=== PATIENT | female | born 1940 | race Caucasian/White ===

== ENCOUNTER → 2021-08-13 | Outpatient (CLI) | payer MEDICARE ==
--- NOTE | 2021-08-13 11:24 | XR ---
EXAMINATION TYPE: XR lumbosacral spine min 4V DATE OF EXAM: 08/13/2021 CLINICAL HISTORY: Pain from fall injury 2 weeks ago. TECHNIQUE: Frontal, lateral, and oblique images of the lumbar spine are obtained. COMPARISON: None FINDINGS: There are 5 lumbar type vertebral bodies identified. The lumbar spine shows grade 1 anter olisthesis L4 on L5. No acute displaced fracture is seen. Vertebral body heights and disc space heigh ts are maintained. [id number] multilevel anterior and lateral spurring. Oblique images appear w ithin normal limits. Possible bilateral renal calculi including 8 mm calculus projecting over the rig ht kidney. Correlate clinically. IMPRESSION: As above
--- NOTE | 2021-08-13 11:38 | XR ---
EXAMINATION TYPE: XR Hip Complete LT DATE OF EXAM: 08/13/2021 CLINICAL HISTORY: Pain from fall injury. TECHNIQUE: AP and frogleg views of the left hip are obtained. COMPARISON: None. FINDINGS: There is no acute fracture/dislocation evident in the left hip. Joint space is maintained. Mild to moderate superior lateral acetabular spurring is present. Mild left groin arterial vascular calcification. Occasional scattered left-sided pelvic phlebolith is noted. IMPRESSION: As above.
== END | disposition home or self-care (01) ==
LOC: RADXRMAIN 10:40
PROVIDERS: ATTEND Internal Medicine
DX: M43.16 Spondylolisthesis, lumbar region (principal); M25.78 Osteophyte, vertebrae; M25.752 Osteophyte, left hip; I87.8 Other specified disorders of veins
CPT/HCPCS: 72110; 73502

== ENCOUNTER 2022-03-03 05:48 | Day surgery (SDC) | payer MEDICARE ==
[2022-03-02 10:10] VITALS: BMI 45.7
[2022-03-03] MEDS ORDERED: ALPRAZolam 0.25 MG TAB PO PRN (05:54)
[2022-03-03] MEDS ORDERED: ATORVASTATIN 80 MG TAB PO STA (05:54)
[2022-03-03] MEDS ORDERED: SODIUM CHLORIDE 0.9% 1,000 ML in EMPTY BAG 1 BAG IV SCH (05:54)
[2022-03-03] MEDS ORDERED: ALPRAZolam 0.5 MG TAB PO PRN (05:54)
[2022-03-03] MEDS ORDERED: NITROGLYCERIN SL TABS 0.4 MG TAB SUBLINGUAL PRN (05:54)
[2022-03-03] MEDS ORDERED: ASPIRIN 325 MG TAB PO STA (05:54)
[2022-03-03] MEDS ORDERED: SODIUM CHLORIDE 0.9% 1,000 ML IV ONE (06:09)
[2022-03-03] MEDS ORDERED: METOPROLOL SUCCINATE (ER) 25 MG TAB.ER.24H PO STA (06:26)
[2022-03-03] MEDS ORDERED: VERAPAMIL SR 240 MG TABLET.ER PO STA (06:26)
[2022-03-03 06:37] LABS: Glucose,Whole Blood 146 mg/dL (70-110)
[2022-03-03 06:40] VITALS: RESP 16; TEMP 98.7
[2022-03-03] MEDS ORDERED: HEPARIN SODIUM,PORCINE 10,000 UNIT in SODIUM CHLORIDE 0.9% 1,000 ML IRRIGATION PRN (07:00)
[2022-03-03] MEDS ORDERED: HEPARIN SODIUM,PORCINE 2,500 UNIT in SODIUM CHLORIDE 0.9% 250 ML IRRIGATION PRN (07:00)
[2022-03-03] MEDS ORDERED: fentaNYL (PF) 50 MCG/ML 2 ML AMP IV ONE (07:33)
[2022-03-03] MEDS ORDERED: LIDOCAINE 1% INJ 10MG/ML (30 ML VIAL-PF) SQ ONE (07:35)
[2022-03-03] MEDS ORDERED: VERAPAMIL SYRINGE (5 MG/10 ML) INTRAARTER ONE (07:39)
[2022-03-03] MEDS ORDERED: IOPAMIDOL-370 125ML BTL INJ ONE (07:48)
[2022-03-03] MEDS ORDERED: RX INFO: IV CONTRAST WAS GIVEN 1 EACH MISC MISCELLANE PRN (07:57)
[2022-03-03] MEDS ORDERED: SODIUM CHLORIDE 0.9% 1,000 ML IV SCH (08:00)
--- NOTE | 2022-03-03 08:04 | P.CARDCATH ---
Date of Procedure: 03/03/22 Description of Procedure: Cardiac Catheterization: The patient is a 81-year-old female with a history of hypertension, hyperlipidemia and diabetes mellitus who has been complaining of progressive dyspnea on exertion, her MPI showed evidence of stress-induced ischemia. Recommendations were made regarding cardiac catheterization, the risks and the complications were discussed with the patient who is in full understanding and agreement. Procedure Description: Patient was brought to syrup machine laborer in fasting semi-sedated state after receiving Fentanyl and Benadryl achieiving moderate conscious sedated state. Using Xylocaine Anesthesia and Seldinger technique, a 6-Persian sheath was introduced in the right radial artery . Subsequently, selective coronary angiography was performed using a 5-Persian 3.5 bend Jyothi catheter. Multiple views of the coronary artery including hemiaxial views were obtained. The right Jyothi catheter was used to cross the aortic valve and LVEDP was calculated. Following that, catheter and sheath were removed. Hemostasis was obtained with deployment of TR band . There was no immediate complication. Patient was returned to room in stable condition. Of note, the patient received a total of 5000 units of intravenous heparin as well as intra-arterial verapamil. Findings: Fluoroscopy: Calcifications of the coronary arteries was noted Left main: This is a large-size vessel, bifurcating into LAD and circumflex, left main has no high-grade stenosis LAD: This is a large-size vessel, reaching to the apex, giving rise to a large diagonal branch, the proximal segment of the diagonal branch has a 20-30% plaque, the LAD after the takeoff of the first septal concrete block molder is a 20-30% plaque, the rest of the vessel has no evidence of high-grade stenosis. Left circumflex: This is a large nondominant vessel giving rise to a proximal first obtuse marginal branch, the second obtuse marginal branch is smaller in caliber, the left circumflex and its branches have no evidence of high-grade stenosis RCA: This is a large dominant vessel, bifurcating into PDA and PLV, the RCA and the mid and distal segment has mild disease of 20-30% Left Ventriculogram: Not performed Hemodynamics: There was no gradient across the aortic valve , LVEDP was 8 to 10 mmHg Conclusion: 1. Calcified coronary arteries 2. 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 Normal LVEDP Recommendations: I have recommended to maximize medical therapy, and continue his aggressive coronary risks modifications. The findings and the recommendations were discussed with the patient and the family and they were in full understanding and agreement. Duration of sedation is 15 minutes.
[2022-03-03] MEDS ORDERED: VITAMIN D3 PO SCH (09:00)
[2022-03-03] MEDS ORDERED: CALCIUM CARBONATE PO SCH (09:00)
[2022-03-03] MEDS ORDERED: [UNRECOGNIZED DRUG - OTHER] PO SCH (09:00)
[2022-03-03] MEDS ORDERED: glipiZIDE 5 MG TAB PO SCH (09:00)
[2022-03-03] MEDS ORDERED: [UNRECOGNIZED DRUG - OTHER] PO SCH (09:00)
[2022-03-03 12:32] VITALS: BP 172/72; PULSE 58
[2022-03-03] MEDS ORDERED: ASPIRIN 81 MG PO SCH (21:00)
[2022-03-03] MEDS ORDERED: ATORVASTATIN 20 MG TAB PO SCH (21:00)
[2022-03-04] MEDS ORDERED: LEVOTHYROXINE 50 MCG TAB PO SCH (06:30)
[2022-03-04] MEDS ORDERED: CHOLECALCIFEROL 25 MCG (1000 IU) TABLET PO SCH (09:00)
[2022-03-04] MEDS ORDERED: VALSARTAN 160 MG TAB PO SCH (09:00)
[2022-03-04] MEDS ORDERED: VERAPAMIL SR 240 MG TABLET.ER PO SCH (09:00)
[2022-03-04] MEDS ORDERED: METOPROLOL SUCCINATE (ER) 25 MG TAB.ER.24H PO SCH (09:00)
== END 2022-03-03 12:33 | disposition home or self-care (01) ==
LOC: CATHCVL 05:48
PROVIDERS: ATTEND Internal Medicine Interventional Cardiology
DX: I25.10 Atherosclerotic heart disease of native coronary artery without angina pectoris (principal); R06.02 Shortness of breath; I10 Essential (primary) hypertension; E11.9 Type 2 diabetes mellitus without complications; E78.5 Hyperlipidemia, unspecified
CPT/HCPCS: 93458; C1769 ×2; C1894; J2001; J3010; J1644; Q9967

== ENCOUNTER 2022-11-20 08:25 | Day surgery (SDC) | payer MEDICARE ==
[~2022-11-20 08:25] MED LIST: Pre Op ABX Message 1 EACH MISC MISCELLANE ONE
[2022-11-20] MEDS ORDERED: HYDROmorphone 0.5 MG/0.5 ML SYRINGE IVP PRN (09:03)
[2022-11-20] MEDS ORDERED: LACTATED RINGERS 1,000 ML IV SCH (09:03)
[2022-11-20 09:24] VITALS: TEMP 97.9
--- NOTE | 2022-11-20 09:25 | P.HPIHPCON ---
History of Present Illness H&P Date: 11/20/22 Patient is a 81-year-old female in today for left temporal artery biopsy. She's been having significant headaches, vision changes and severe pain to her left temporal area, she was seen by her oil pipeline operator to Center for lab work which showed an elevated sed rate of 33 on 11/09/2022. She also underwent carotid Dopplers previously in June which showed less than 40% bilaterally per reports. Consent for Procedure: I have explained the operation/procedure to the patient, including the risks, benefits, side effects, alternative therapies (including not receiving the proposed treatment or service), the likelihood of the patient achieving his/her goals, and potential recuperation problems for the procedure/sedation/analgesia, as well as any blood products, if indicated. I also explained to the patient the risks, benefits and side effects of the alternatives, as well as the risks related to not receiving the proposed procedure, care, treatment, or services. Past Medical History Past Medical History: Cancer, Diabetes Mellitus, Hyperlipidemia, Hypertension, Thyroid Disorder Additional Past Medical History / Comment(s): BREAST CANCER, URINARY TRACT INFECTION, LEAKAGE OF URINE- WEARS DEPENDS,PADS currently having headaches and visual issues with left eye History of Any Multi-Drug Resistant Organisms: None Reported Past Surgical History: Bowel Resection, Breast Surgery, Hysterectomy, Joint Replacement Additional Past Surgical History / Comment(s): RIGHT LUMPECTOMY, BREAST BIOPSY , RIGHT HEEL SURGERY, COLONOSCOPIES, TOTAL RIGHT KNEE. BILATERAL CATARACT SURGERY Past Anesthesia/Blood Transfusion Reactions: No Reported Reaction Past Psychological History: No Psychological Hx Reported Smoking Status: Never smoker Past Alcohol Use History: None Reported Past Drug Use History: None Reported - Past Family History Sister(s) Family Medical History: Cancer Medications and Allergies Home Medications Medication Instructions Recorded Confirmed Type Aspirin EC [Ecotrin Low Dose] 81 mg PO HS 03/02/22 11/19/22 History Calcium Carbonate/Vitamin D3 1 each PO DAILY 03/02/22 11/19/22 History [Calcium 600 mg-D3 10 Mcg (400 Iu)] Levothyroxine Sodium [Synthroid] 50 mcg PO DAILY 03/02/22 11/19/22 History Metoprolol Succinate (ER) [Toprol 25 mg PO DAILY 03/02/22 11/19/22 History Xl] Valsartan 160 mg PO DAILY 03/02/22 11/19/22 History Vit C/E/Zn/Coppr/Lutein/Zeaxan 1 tab PO DAILY 03/02/22 11/19/22 History [Preservision Areds 2 Chew Tab] glipiZIDE 5 mg PO TID 03/02/22 11/19/22 History metFORMIN HCL 500 mg PO BID 03/02/22 11/19/22 History Latanoprost [Latanoprost 0.005%] 1 drop RIGHT EYE DAILY 11/19/22 11/19/22 History Meclizine HCl 25 mg PO TID PRN 11/19/22 11/19/22 History Rosuvastatin Calcium 10 mg PO HS 11/19/22 11/19/22 History amLODIPine BESYLATE 5 mg PO BID 11/19/22 11/19/22 History hydrALAZINE HCL 50 mg PO BID 11/19/22 11/19/22 History Allergies Allergy/AdvReac Type Severity Reaction Status Date / Time No Known Allergies Allergy Verified 11/19/22 11:22 Surgical - Exam GEN is a pleasant cooperative female in no acute distress. HEENT is normal, atraumatic, excellent motion intact. Heart appears regular rate and rhythm. Lungs are clear bilaterally. Abdomen soft. Palpable left temporal pulse. Slightly watering left eye Assessment and Plan Assessment: Elevated sed rate Headaches Vision changes Rule out temporal arteritis Plan: We'll plan to go forward with left temporal artery biopsy today had long discussion with the patient regarding risks and benefits of the procedure as w ell as follow-up should this be a positive test. She seemingly understands and is willing to proceed.
[2022-11-20] MEDS ORDERED: ONDANSETRON 4 MG/2 ML VIAL ONE (09:33)
[2022-11-20 09:34] LABS: Glucose,Whole Blood 178 mg/dL (70-110)
[2022-11-20] MEDS ORDERED: DEXAMETHASONE SOD PHOSPHATE 4 MG/ML 1 ML VIAL IV ONE (09:35)
[2022-11-20] MEDS ORDERED: PROPOFOL 10 MG/ML 20 ML VIAL IV ONE (11:14)
[2022-11-20] MEDS ORDERED: LIDOCAINE 2% INJ 20 MG/ML (2 ML VIAL) ONE (11:14)
[2022-11-20] MEDS ORDERED: KETAMINE 10 MG/ML 20 ML VIAL ONE (11:14)
[2022-11-20] MEDS ORDERED: MIDAZOLAM 2 MG/2 ML VIAL ONE (11:14)
[2022-11-20] MEDS ORDERED: fentaNYL (PF) 50 MCG/ML 2 ML AMP ONE (11:14)
[2022-11-20] MEDS ORDERED: SODIUM CHLORIDE 0.9% 50 ML with ceFAZolin 2,000 MG IV ONE ×2 (11:19)
[2022-11-20] MEDS ORDERED: LIDOCAINE 2% (PF) 20 MG/ML 10 ML AMP SQ ONE (11:41)
[2022-11-20] MEDS ORDERED: BACITRACIN OINT 1 EACH PACKET TOPICAL ONE (11:54)
[2022-11-20 12:16] VITALS: RESP 16
--- NOTE | 2022-11-20 12:23 | P.OP ---
Date of Procedure: 11/20/22 Description of Procedure: Preoperative diagnosis: Headaches, rule out temporal arteritis Postoperative diagnosis: Same Procedure: Left temporal artery biopsy Surgeon: Micaela Delarosa D.O. EBL: Less than 10 mL IV fluids: See anesthesia records Urine output: Not measured Drains: None Complications: None immediately apparent Condition: Stable to recovery Operative indication and findings: Patient is a 81-year-old female who recently began having increasing and worsening headaches. Through the evaluation and workup was recommended undergo temporal artery biopsy. Risks and benefits were discussed. They present for intervention today. Procedure in detail: The patient was taken to the operative suite and placed in supine position. The side of the face was prepped and draped in usual sterile fashion. A preprocedure timeout was performed, all parties are in agreement. The area of the greatest pulse was anesthetized at the temporal region. Incision was made and carried onto the subcuticular tissue using electrocautery. The artery was identified. It was dissected free proximally and distally. It was ligated with 3-0 silk ties. The 1.5 cm portion of the artery was excised and sent for pathology. The area was then irrigated. Hemostasis was achieved electrocautery. The deep dermal tissues were reapproximated with interrupted sutures of 3-0 Vicryl. The skin was reprepped with running 5-0 Monocryl in subcu cuticular fashion. Skin glue was placed. The patient was allowed to a waken and transferred to recovery in stable condition having tolerated the procedure well Plan - Discharge Summary Discharge Rx Participant: No New Discharge Prescriptions: No Action Vit C/E/Zn/Coppr/Lutein/Zeaxan [Preservision Areds 2 Chew Tab] 1 tab PO DAILY Levothyroxine Sodium [Synthroid] 50 mcg PO DAILY amLODIPine BESYLATE 5 mg PO BID Rosuvastatin Calcium 10 mg PO HS Meclizine HCl 25 mg PO TID PRN PRN Reason: dizziness Latanoprost [Latanoprost 0.005%] 1 drop RIGHT EYE DAILY Metoprolol Succinate (ER) [Toprol Xl] 25 mg PO DAILY metFORMIN HCL 500 mg PO BID glipiZIDE 5 mg PO TID Valsartan 160 mg PO DAILY Aspirin EC [Ecotrin Low Dose] 81 mg PO HS Calcium Carbonate/Vitamin D3 [Calcium 600 mg-D3 10 Mcg (400 Iu)] 1 each PO DAILY hydrALAZINE HCL 50 mg PO BID Discharge Medication List Aspirin EC [Ecotrin Low Dose] 81 mg PO HS 03/02/22 [History] Calcium Carbonate/Vitamin D3 [Calcium 600 mg-D3 10 Mcg (400 Iu)] 1 each PO DAILY 03/02/22 [History] Levothyroxine Sodium [Synthroid] 50 mcg PO DAILY 03/02/22 [History] Metoprolol Succinate (ER) [Toprol Xl] 25 mg PO DAILY 03/02/22 [History] Valsartan 160 mg PO DAILY 03/02/22 [History] Vit C/E/Zn/Coppr/Lutein/Zeaxan [Preservision Areds 2 Chew Tab] 1 tab PO DAILY 03/02/22 [History] glipiZIDE 5 mg PO TID 03/02/22 [History] metFORMIN HCL 500 mg PO BID 03/02/22 [History] Latanoprost [Latanoprost 0.005%] 1 drop RIGHT EYE DAILY 11/19/22 [History] Meclizine HCl 25 mg PO TID PRN 11/19/22 [History] Rosuvastatin Calcium 10 mg PO HS 11/19/22 [History] amLODIPine BESYLATE 5 mg PO BID 11/19/22 [History] hydrALAZINE HCL 50 mg PO BID 11/19/22 [History] Follow up Appointment(s)/Referral(s): Micaela Delarosa DO [STAFF PHYSICIAN] - 10 Days Activity/Diet/Wound Care/Special Instructions: Resume regular activity. Resume regular diet. Resume all home medications. [id number] pain medication for pain control. Ice if needed. May shower starting tomorrow. Do not wash hair for 2 days. Discharge Disposition: HOME SELF-CARE
[2022-11-20 13:11] VITALS: BP 138/63; PULSE 62
== END 2022-11-20 13:30 | disposition home or self-care (01) ==
LOC: OR 08:25
PROVIDERS: ATTEND Surgery
DX: R51.9 Headache, unspecified (principal); H53.9 Unspecified visual disturbance; I10 Essential (primary) hypertension; E78.5 Hyperlipidemia, unspecified; E03.9 Hypothyroidism, unspecified; E11.9 Type 2 diabetes mellitus without complications; Z85.3 Personal history of malignant neoplasm of breast; Z87.440 Personal history of urinary (tract) infections; Z79.890 Hormone replacement therapy; Z79.84 Long term (current) use of oral hypoglycemic drugs; Z79.82 Long term (current) use of aspirin; Z79.899 Other long term (current) drug therapy
CPT/HCPCS: 37609; J2250; J1100; J2001 ×2; J2405; J0690; J3010; J2704; 88305